=== PATIENT | female | born 1955 | race African-American/Black ===

== ENCOUNTER 2021-04-23 06:38 | Inpatient (IN) ==
[2021-04-23] MEDS ORDERED: SODIUM CHLORIDE 0.9% 1,000 ML IV STA (06:47)
[2021-04-23 08:15] LABS: Basophils % 0.2 % (0.0-0.8); Eosinophils % 0.1 % (0.00-10.9); Hemoglobin 8.2 GM/DL (12.0-16.0); Immature Granulocytes % 2.3 %; Immature Granulocytes Absolute 0.32 #; Lymphocytes # 1.2 10*3/uL (1.4-4.0); Lymphocytes % 8.9 % (21.3-54.2); Mean Corpuscular HGB Conc 31.5 GM/DL (32-36); Mean Corpuscular Volume 87.8 FL (87-102); Mean Platelet Volume 9.6 FL (9.6-12.0); Monocytes % 7.4 % (1.7-12.7); Neutrophils % 81.1 % (38.7-73.9); Platelet Count 392 T/CUMM (130-400); Red Blood Count 2.96 MC/CUMM (3.8-5.5); Red Cell Distribution Width 18.2 % (9.3-17.3); White Blood Count 13.6 T/CUMM (4-12)
[2021-04-23 08:35] LABS: Albumin 1.7 G/DL (3.4-5.0); Bilirubin,Total 0.8 MG/DL (0.20-1.00); Calcium 8.3 MG/DL (8.5-10.1); Osmolality,Calculated 287.2 MOS/KG (273-304); Potassium 4.5 MMOL/L (3.5-5.1); Total Protein 8.1 G/DL (6.4-8.2)
[2021-04-23 08:43] LABS: Band Neutrophils 1 % (0-10); Hypochromasia 1+; Lymphocytes 3 % (20-55); Microcytosis 1+; Platelet Estimate Adequate; Segmented Neutrophils 92 % (50-85); Total Cells Counted 100
[2021-04-23 08:52] LABS: Bacteria,Urine Many /HPF (Few); Bilirubin,Urine Negative (Negative); Blood, Urine Large mg/dL (Negative); Glucose,Urine (UA) Negative (Negative); Hyaline Casts,Urine 28 /LPF (0-3); Ketones,Urine Negative (Negative); Nitrite,Urine Negative (Negative); Protein,Urine 100 MG/DL; RBC,Urine 76 /HPF (0-4); Squamous Epithelial Cell,Urine Occasional /HPF (0-10); Urine Appearance CLOUDY (Clear); Urine Color Yellow (Yellow); Urine Specific Gravity 1.018 (1.001-1.035)
[2021-04-23] MEDS ORDERED: cefTRIAXone 1,000 MG in SODIUM CHLORIDE 0.9% 100 ML IV STA (09:01)
[2021-04-23] MEDS: DEXTROSE 5% NACL 0.45% 1,000 ML IV SCH ×2 (09:20→17:45)
[2021-04-23] MEDS ORDERED: GLUCAGON 1 MG VIAL IM PRN (11:11)
[2021-04-23] MEDS ORDERED: DEXTROSE 50% 25 GM/50 ML VIAL IV PRN (11:11)
[2021-04-23] MEDS ORDERED: SODIUM CHLORIDE 0.9% 1,000 ML IV SCH (11:30)
[2021-04-23 11:45] LABS: % Iron Saturation 7.6 % (18-50)
[2021-04-23] MEDS ORDERED: CASIRIVIMAB/IMDEVIMAB 1,200 MG in SODIUM CHLORIDE 0.9% 100 ML IV ONE (12:00)
[2021-04-23] MEDS ORDERED: ALBUTEROL 2.5 MG/3 ML NEB RESP TX SCH (13:00)
[2021-04-23] MEDS: ENOXAPARIN 30 MG/0.3 ML SYRINGE SUBCUT SCH (13:39)
[2021-04-23] MEDS: AZITHROMYCIN INJ 500 MG in SODIUM CHLORIDE 0.9% 250 ML IV SCH (13:39)
[2021-04-23] MEDS: BENZONATATE 100 MG CAPSULE PO SCH ×2 (16:01→22:03)
[2021-04-23] MEDS: FAMOTIDINE 20 MG TABLET PO SCH (21:59)
[2021-04-23] MEDS: ASCORBIC ACID 500 MG TABLET PO SCH (22:03)
[2021-04-23] MEDS ORDERED: ACETAMINOPHEN 325 MG TABLET PO PRN (23:59)
[2021-04-23] MEDS ORDERED: ONDANSETRON 4 MG/2 ML VIAL IV PRN (23:59)
[2021-04-23] MEDS ORDERED: diphenhydrAMINE 50 MG/1 ML VIAL IV PRN ×2 (23:59)
[2021-04-23] MEDS ORDERED: MECLIZINE 25 MG TABLET PO PRN (23:59)
[2021-04-23] MEDS ORDERED: methylPREDNISolone SOD SUC 125 MG/2 ML VIAL IV PRN (23:59)
[2021-04-24] MEDS: DEXTROSE 5% NACL 0.45% 1,000 ML IV SCH ×2 (01:26→10:41)
[2021-04-24 06:09] LABS: Basophils % 0.3 % (0.0-0.8); Eosinophils % 0.3 % (0.00-10.9); Hematocrit 28.7 VOL% (35.7-47.0); Hemoglobin 8.7 GM/DL (12.0-16.0); Immature Granulocytes % 1.8 %; Immature Granulocytes Absolute 0.18 #; Lymphocytes % 10.2 % (21.3-54.2); Mean Corpuscular HGB Conc 30.3 GM/DL (32-36); Mean Corpuscular Volume 88.9 FL (87-102); Mean Platelet Volume 9.5 FL (9.6-12.0); Monocytes % 10.3 % (1.7-12.7); Neutrophils % 77.1 % (38.7-73.9); Platelet Count 393 T/CUMM (130-400); Red Blood Count 3.23 MC/CUMM (3.8-5.5); Red Cell Distribution Width 18.2 % (9.3-17.3); White Blood Count 9.9 T/CUMM (4-12)
[2021-04-24 06:32] LABS: Ferritin 953.9 ng/mL (8-252)
[2021-04-24 06:33] LABS: Band Neutrophils 1 % (0-10); Eosinophils 1 % (0-10); Hypochromasia Slight; Lymphocytes 5 % (20-55); Platelet Estimate Normal; Segmented Neutrophils 88 % (50-85); Total Cells Counted 100
[2021-04-24 06:35] LABS: Albumin 1.5 G/DL (3.4-5.0); Bilirubin,Total 0.5 MG/DL (0.20-1.00); Calcium 7.7 MG/DL (8.5-10.1); Potassium 4.3 MMOL/L (3.5-5.1); Thyroid Stimulating Hormone 0.607 uIU/ml (0.358-3.74); Total Protein 7.1 G/DL (6.4-8.2)
[2021-04-24 07:38] LABS: Sedimentation Rate-Westergren 19 MM/HR (0-30)
[2021-04-24 08:01] LABS: Folate 12.64 NG/ML (5.38-24.0); Vitamin B12 > 2000 PG/ML (211-911)
[2021-04-24] MEDS: DEXAMETHASONE 4 MG/1 ML VIAL IV SCH (10:42)
[2021-04-24] MEDS: cefTRIAXone 1,000 MG in SODIUM CHLORIDE 0.9% 100 ML IV SCH (10:43)
[2021-04-24] MEDS: ENOXAPARIN 30 MG/0.3 ML SYRINGE SUBCUT SCH (10:43)
[2021-04-24] MEDS: AZITHROMYCIN INJ 500 MG in SODIUM CHLORIDE 0.9% 250 ML IV SCH (10:44)
[2021-04-24] MEDS: CHOLECALCIFEROL 1,000 UNIT TABLET PO SCH (12:17)
[2021-04-24] MEDS: METOPROLOL TARTRATE 25 MG TABLET PO SCH (12:17)
[2021-04-24] MEDS: ASCORBIC ACID 500 MG TABLET PO SCH ×2 (12:17→21:58)
[2021-04-24] MEDS: ZINC GLUCONATE 50 MG TABLET PO SCH (12:18)
[2021-04-24] MEDS: BENZONATATE 100 MG CAPSULE PO SCH ×3 (12:18→21:58)
[2021-04-24] MEDS: FAMOTIDINE 20 MG TABLET PO SCH ×2 (12:18→21:58)
[2021-04-24] MEDS ORDERED: DEXTROSE 50% 25 GM/50 ML VIAL IV PRN (12:20)
[2021-04-24] MEDS ORDERED: GLUCAGON 1 MG VIAL IM PRN (12:20)
[2021-04-24] MEDS: INSULIN LISPRO 100 UNIT/ML SUBCUT SCH ×2 (17:13→22:03)
[2021-04-24] MEDS: SIMVASTATIN 10 MG TABLET PO SCH (21:58)
[2021-04-24] MEDS: APIXABAN 5 MG TABLET PO SCH (21:58)
[2021-04-25] MEDS: DEXTROSE 5% NACL 0.45% 1,000 ML IV SCH ×3 (02:52→17:42)
[2021-04-25 06:11] LABS: Ferritin 1070.4 ng/mL (8-252)
[2021-04-25 08:07] LABS: Basophils % 0.1 % (0.0-0.8); Eosinophils # 0.1 10*3/uL (0.0-0.87); Eosinophils % 0.4 % (0.00-10.9); Hematocrit 25.7 VOL% (35.7-47.0); Hemoglobin 7.6 GM/DL (12.0-16.0); Immature Granulocytes % 1.3 %; Immature Granulocytes Absolute 0.17 #; Lymphocytes # 1.1 10*3/uL (1.4-4.0); Lymphocytes % 8.1 % (21.3-54.2); Mean Corpuscular HGB Conc 29.6 GM/DL (32-36); Mean Corpuscular Volume 89.5 FL (87-102); Mean Platelet Volume 10.2 FL (9.6-12.0); Monocytes % 5.2 % (1.7-12.7); Neutrophils % 84.9 % (38.7-73.9); Platelet Count 413 T/CUMM (130-400); Red Blood Count 2.87 MC/CUMM (3.8-5.5); Red Cell Distribution Width 18.2 % (9.3-17.3); White Blood Count 13.2 T/CUMM (4-12)
[2021-04-25 08:27] LABS: Potassium 4.7 MMOL/L (3.5-5.1)
[2021-04-25] MEDS: INSULIN LISPRO 100 UNIT/ML SUBCUT SCH ×4 (09:04→21:52)
[2021-04-25] MEDS: DEXAMETHASONE 4 MG/1 ML VIAL IV SCH (09:05)
[2021-04-25] MEDS: cefTRIAXone 1,000 MG in SODIUM CHLORIDE 0.9% 100 ML IV SCH (09:06)
[2021-04-25] MEDS: ASCORBIC ACID 500 MG TABLET PO SCH ×2 (09:07→21:53)
[2021-04-25] MEDS: BENZONATATE 100 MG CAPSULE PO SCH ×3 (09:08→21:52)
[2021-04-25] MEDS: APIXABAN 5 MG TABLET PO SCH ×2 (09:08→21:52)
[2021-04-25] MEDS: METOPROLOL TARTRATE 25 MG TABLET PO SCH (09:08)
[2021-04-25] MEDS: ZINC GLUCONATE 50 MG TABLET PO SCH (09:08)
[2021-04-25] MEDS: FAMOTIDINE 20 MG TABLET PO SCH ×2 (09:08→21:53)
[2021-04-25] MEDS: CHOLECALCIFEROL 1,000 UNIT TABLET PO SCH (09:08)
[2021-04-25] MEDS ORDERED: SODIUM CHLORIDE 0.9% 1,000 ML IV PRN (09:44)
[2021-04-25] MEDS: AZITHROMYCIN INJ 500 MG in SODIUM CHLORIDE 0.9% 250 ML IV SCH (11:46)
[2021-04-25] MEDS: LINEZOLID INJ 600 MG/300 ML PREMIX IV SCH (17:50)
[2021-04-25] MEDS: SIMVASTATIN 10 MG TABLET PO SCH (21:53)
[2021-04-26] MEDS: DEXTROSE 5% NACL 0.45% 1,000 ML IV SCH ×3 (02:11→08:35)
[2021-04-26 04:46] LABS: Basophils % 0.3 % (0.0-0.8); Hematocrit 39.8 VOL% (35.7-47.0); Immature Granulocytes % 1.7 %; Immature Granulocytes Absolute 0.18 #; Lymphocytes # 1.2 10*3/uL (1.4-4.0); Lymphocytes % 11.2 % (21.3-54.2); Mean Corpuscular HGB Conc 30.9 GM/DL (32-36); Mean Corpuscular Volume 87.1 FL (87-102); Mean Platelet Volume 9.6 FL (9.6-12.0); Monocytes % 8.7 % (1.7-12.7); Neutrophils % 78.1 % (38.7-73.9); Platelet Count 408 T/CUMM (130-400); Red Cell Distribution Width 17.2 % (9.3-17.3); White Blood Count 10.9 T/CUMM (4-12)
[2021-04-26 04:50] LABS: Red Blood Count 4.57 MC/CUMM (3.8-5.5)
[2021-04-26 04:51] LABS: Hemoglobin 12.3 GM/DL (12.0-16.0)
[2021-04-26 05:10] LABS: Ferritin 953.5 ng/mL (8-252)
[2021-04-26] MEDS: LINEZOLID INJ 600 MG/300 ML PREMIX IV SCH (05:20)
[2021-04-26 05:22] LABS: Calcium 8.2 MG/DL (8.5-10.1); Potassium 4.3 MMOL/L (3.5-5.1)
[2021-04-26] MEDS: APIXABAN 5 MG TABLET PO SCH ×2 (08:30→21:20)
[2021-04-26] MEDS: INSULIN LISPRO 100 UNIT/ML SUBCUT SCH ×4 (08:30→21:21)
[2021-04-26] MEDS: ZINC GLUCONATE 50 MG TABLET PO SCH (08:31)
[2021-04-26] MEDS: cefTRIAXone 1,000 MG in SODIUM CHLORIDE 0.9% 100 ML IV SCH (08:31)
[2021-04-26] MEDS: ASCORBIC ACID 500 MG TABLET PO SCH ×2 (08:31→21:21)
[2021-04-26] MEDS: CHOLECALCIFEROL 1,000 UNIT TABLET PO SCH (08:32)
[2021-04-26] MEDS: DEXAMETHASONE 4 MG/1 ML VIAL IV SCH (08:32)
[2021-04-26] MEDS: BENZONATATE 100 MG CAPSULE PO SCH ×3 (08:32→21:21)
[2021-04-26] MEDS: METOPROLOL TARTRATE 25 MG TABLET PO SCH (08:32)
[2021-04-26] MEDS: FAMOTIDINE 20 MG TABLET PO SCH ×2 (08:32→21:21)
[2021-04-26] MEDS: MEROPENEM 500 MG in SODIUM CHLORIDE 0.9% 100 ML IV SCH ×2 (10:38→16:12)
[2021-04-26] MEDS: VANCOMYCIN INJ 1,000 MG in SODIUM CHLORIDE 0.9% 250 ML IV SCH (12:25)
[2021-04-26] MEDS: SODIUM CHLORIDE 0.45% 1,000 ML IV SCH (12:26)
[2021-04-26] MEDS: SIMVASTATIN 10 MG TABLET PO SCH (21:20)
[2021-04-27] MEDS: MEROPENEM 500 MG in SODIUM CHLORIDE 0.9% 100 ML IV SCH ×3 (00:37→16:27)
[2021-04-27] MEDS: SODIUM CHLORIDE 0.45% 1,000 ML IV SCH ×2 (04:34→13:56)
[2021-04-27] MEDS: VANCOMYCIN INJ 1,000 MG in SODIUM CHLORIDE 0.9% 250 ML IV SCH ×3 (04:34→23:56)
[2021-04-27 06:51] LABS: Basophils % 0.2 % (0.0-0.8); Hematocrit 39.5 VOL% (35.7-47.0); Hemoglobin 12.6 GM/DL (12.0-16.0); Immature Granulocytes % 1.2 %; Immature Granulocytes Absolute 0.18 #; Lymphocytes # 1.5 10*3/uL (1.4-4.0); Lymphocytes % 10.2 % (21.3-54.2); Mean Corpuscular HGB Conc 31.9 GM/DL (32-36); Mean Corpuscular Volume 84.4 FL (87-102); Mean Platelet Volume 9.9 FL (9.6-12.0); Monocytes % 7.5 % (1.7-12.7); Neutrophils % 80.9 % (38.7-73.9); Platelet Count 417 T/CUMM (130-400); Red Blood Count 4.68 MC/CUMM (3.8-5.5); Red Cell Distribution Width 17.8 % (9.3-17.3); White Blood Count 14.5 T/CUMM (4-12)
[2021-04-27 07:19] LABS: Calcium 7.8 MG/DL (8.5-10.1); Osmolality,Calculated 285.8 MOS/KG (273-304); Potassium 4.1 MMOL/L (3.5-5.1)
[2021-04-27 07:30] LABS: Ferritin 930.7 ng/mL (8-252)
[2021-04-27] MEDS: CHOLECALCIFEROL 1,000 UNIT TABLET PO SCH (08:48)
[2021-04-27] MEDS: FAMOTIDINE 20 MG TABLET PO SCH ×2 (08:48→21:56)
[2021-04-27] MEDS: ASCORBIC ACID 500 MG TABLET PO SCH ×2 (08:49→21:55)
[2021-04-27] MEDS: ZINC GLUCONATE 50 MG TABLET PO SCH (08:49)
[2021-04-27] MEDS: INSULIN LISPRO 100 UNIT/ML SUBCUT SCH ×4 (08:49→21:58)
[2021-04-27] MEDS: METOPROLOL TARTRATE 25 MG TABLET PO SCH (08:49)
[2021-04-27] MEDS: BENZONATATE 100 MG CAPSULE PO SCH ×3 (08:49→21:55)
[2021-04-27] MEDS: APIXABAN 5 MG TABLET PO SCH ×2 (08:49→21:54)
[2021-04-27] MEDS: DEXAMETHASONE 4 MG/1 ML VIAL IV SCH (08:49)
[2021-04-27 10:15] LABS: Hemoglobin A1 (Alkaline) 97.3 % (96.5-98.5); Hemoglobin A2 (Alkaline) 2.7 % (1.5-3.5)
[2021-04-27] MEDS: HALOPERIDOL 5 MG/ML AMP IM PRN ×2 (13:36→22:05)
[2021-04-27] MEDS: SIMVASTATIN 10 MG TABLET PO SCH (21:54)
[2021-04-28] MEDS: MEROPENEM 500 MG in SODIUM CHLORIDE 0.9% 100 ML IV SCH ×2 (01:56→09:34)
[2021-04-28] MEDS: SODIUM CHLORIDE 0.45% 1,000 ML IV SCH (07:18)
[2021-04-28] MEDS: ALBUTEROL INHALER 18 GM INH SCH ×3 (07:58→12:06)
[2021-04-28] MEDS: INSULIN LISPRO 100 UNIT/ML SUBCUT SCH ×2 (08:54→12:07)
[2021-04-28] MEDS: ZINC GLUCONATE 50 MG TABLET PO SCH (08:55)
[2021-04-28] MEDS: BENZONATATE 100 MG CAPSULE PO SCH (08:56)
[2021-04-28] MEDS: METOPROLOL TARTRATE 25 MG TABLET PO SCH (08:56)
[2021-04-28] MEDS: CHOLECALCIFEROL 1,000 UNIT TABLET PO SCH (08:56)
[2021-04-28] MEDS: ASCORBIC ACID 500 MG TABLET PO SCH (08:56)
[2021-04-28] MEDS: APIXABAN 5 MG TABLET PO SCH (08:57)
[2021-04-28] MEDS: FAMOTIDINE 20 MG TABLET PO SCH (09:01)
[2021-04-28] MEDS: DEXAMETHASONE 4 MG/1 ML VIAL IV SCH (09:35)
[2021-04-28 12:11] VITALS: BP 115/78
[2021-05-01] MEDS ORDERED: APIXABAN 5 MG TABLET PO SCH (09:00)
== END 2021-04-28 13:00 | disposition home or self-care (01) | DRG 720 ==
LOC: EDUNIT# → EDBD → N.ED 06:38 → N.2E 06:38
PROVIDERS: ADMIT Internal Medicine; ATTEND Internal Medicine